=== PATIENT | male | born 1955 | race Hispanic/Latino ===

== ENCOUNTER 2024-07-13 14:00 | Inpatient (IN) | payer OTHER ==
[~2024-07-13] VITALS: Ht 170.2 cm; Wt 104.3 kg
[2024-07-14 13:42] VITALS: BP 138/74; PULSE 67; RESP 19; TEMP 97.3
[2024-07-14 13:53] LABS: BASOPHILS # (AUTO) 0.01 K/uL (0.00-0.20); BASOPHILS % (AUTO) 0.1 % (0.0-5.0); HEMATOCRIT 33.9 % (42-54); IMMATURE GRANULOCYTE ABSOLUTE 0.06 K/uL (0-1); LYMPHOCYTES # (AUTO) 1.1 K/uL (1.0-4.8); LYMPHOCYTES % (AUTO) 13.1 % (21.0-51.0); MEAN CORPUSCULAR HEMOGLOBIN 27.3 pg (27.0-33.0); MEAN CORPUSCULAR HGB CONC 31.6 g/dL (32.0-36.0); MEAN CORPUSCULAR VOLUME 86.5 fL (79-99); MONOCYTES # (AUTO) 0.4 K/uL (0.1-1.0); MONOCYTES % (AUTO) 4.1 % (3.0-13.0); PLATELET COUNT (AUTO) 464 K/uL (130-400); RED BLOOD CELL COUNT(AUTO) 3.92 MIL/uL (4.50-6.20); RED CELL DISTRIBUTION WIDTH 15.3 % (11.0-15.5); WHITE BLOOD COUNT (AUTO) 8.6 K/uL (4.8-10.8)
[2024-07-14 13:58] LABS: INR 1.24 (0.85-1.15); PROTHROMBIN TIME 13.2 SEC (9.6-11.6)
[2024-07-14 14:00] LABS: PARTIAL THROMBOPLASTIN TIME 27.3 SEC (26.3-35.5)
[2024-07-14 14:03] LABS: ALBUMIN 2.4 g/dL (3.5-5.0); BILIRUBIN,TOTAL 0.3 mg/dL (0.2-1.0); CREATININE 1.3 mg/dL (0.5-1.3); POTASSIUM 4.7 mmol/L (3.5-5.1)
[2024-07-14] MEDS ORDERED: MONT-39 PO (14:21)
[2024-07-14] MEDS ORDERED: MORPHINE PO (14:21)
[2024-07-18] VITALS (22 sets, daily range): BP systolic 109–159; BP diastolic 68–92; PULSE 72–97; RESP 16–22; TEMP 97.4–99.2; O2SAT 95–96
[2024-07-18] MEDS: 0.9%NACL 1000ML 1,000 ML IV ONE (06:54)
[2024-07-18] MEDS: MEROPENEM 1 GM VIAL ONE (06:54)
[2024-07-18] MEDS: FAMOTIDINE 20MG VIAL IV ONE (07:04)
[2024-07-18] MEDS: acetaMINOPHEN 100 ML ONE (07:04)
[2024-07-18] MEDS ORDERED: ALBUTEROL INHALER 90MCG/INH IH ONE (07:07)
[2024-07-18] MEDS ORDERED: ketaMINE HCL 100 MG/ML 5ML VIAL IJ ONE (07:10)
[2024-07-18] MEDS ORDERED: proPOFol 10 MG/ML 20ML VIAL IV ONE (07:16)
[2024-07-18] MEDS ORDERED: rocuRONium bROMide 10MG/1ML 5ML VL ONE (07:16)
[2024-07-18] MEDS ORDERED: FENTanyl CITRate PF 50 MCG/1 ML 2ML VIAL ONE (07:16)
[2024-07-18] MEDS ORDERED: LIDOCAINE PF 100MG/5ML (2%) SYRINGE 5ML ONE (07:16)
[2024-07-18] MEDS ORDERED: LIDOCAINE 1%-EPI 1:100,000 20 ML VIAL ONE (07:17)
[2024-07-18] MEDS ORDERED: BUPIvacaine/PF 0.5% 30ML VIAL ONE (07:17)
--- NOTE | 2024-07-18 07:25 | EKG ---
[facility] Test Date: 2024-07-18 Test Time: 06:56:57 Pat Name: MARK CLARKE Department: [facility] Room: 330 Gender: M Internet Developer: [id number] Requested By: JACKSON AHUMADA Order Number: [id number] Reading MD: Edwin Sanchez Measurements Intervals [place] Rate: 99 P: 42 [place]: 134 QRS: 44 QRSD: 106 T: 27 QT: 355 QTc: 457 Interpretive Statements Sinus rhythm No previous ECG available for comparison Electronically Signed On 07-18-2024 18:11:05 LIBRARY SCIENCE INSTRUCTOR by Edwin Sanchez Please click the below link to view image of tracing.
[2024-07-18] MEDS: LIDOCAINE 1%-EPI 1:100,000 20 ML VIAL IJ ONE (07:33)
[2024-07-18] MEDS ORDERED: ondanSETRON 4MG INJ ONE (07:43)
[2024-07-18] MEDS ORDERED: dexaMETHasone SOD PHOSPHATE 10MG/ML 1ML VIAL ONE (07:43)
[2024-07-18] MEDS ORDERED: NEOSTIGMINE METHYLSULFATE 1MG/ML IV ONE (08:45)
[2024-07-18] MEDS ORDERED: GLYCOPYRROLATE 0.2 MG/ML 5 ML VIAL ONE (08:45)
--- NOTE | 2024-07-18 09:18 | OP ---
Operative Note: DATE OF PROCEDURE: 07/18/24 SURGEON: JACKSON AHUMADA MD MEDICAL IMAGING TECHNICIAN: [None] ANESTHESIA: [General plus local] PREOPERATIVE DIAGNOSIS: [Locally advanced rectal adenocarcinoma. Malignant perianal fistulas.] POSTOPERATIVE DIAGNOSIS: [Locally advanced rectal adenocarcinoma with malignant perianal fistulas. Significant retroperitoneal fibrosis] SYNOPSIS: [This is a 69-year-old male with a locally advanced rectal adenocarcinoma with multiple malignant perianal fistula as which renders him incontinent of feces. He is currently undergoing chemotherapy and as a quality of life measure he was offered to have stool diversion. Risks were abrasions and alternatives were explained in detail to the patient who granted consent.] PROCEDURE: [Robotic respiratory care assistant loop colostomy creation. Left ureteral lysis] ESTIMATED BLOOD LOSS: [Minimal] INDICATIONS: [Locally advanced rectal cancer with fistulizing disease.] DESCRIPTION OF PROCEDURE: [The patient was identified in the holding area transferred to the OR placed supine on the operative table. Venodyne boots were placed for DVT prophylaxis. IV antibiotics were given within the hour of skin incision. After general anesthesia was obtained, time-out conducted, he was p repped and draped in the usual sterile fashion. We gained access to the abdomen via Veress needle in the left upper quadrant. Afterwards under direct vision Optiview port was placed in the right upper quadrant. 8 mm ports were placed in the diagonal fashion from the left upper quadrant to the right lower quadrant. The patient was placed in Trendelenburg position with the right side down. Sigmoid colon was identified. We began mobilization from a lateral to medial fashion from the pelvic brim all the way to the splenic flexure. The sigmoid colon was widely mobilized medially. The medial dissection was then performed releasing the colon from the retroperitoneum. There was significant fibrosis at the level of the retroperitoneum encasing the ureter making it to be plastered against the mesentery. So the left ureter adhesions were lysed and mobilized so we can safely bring the colon up for a colostomy creation. Great care was taken not to injure the ureter and other retroperitoneal structures. Having completed wide mobilization we realized the colon reach the abdominal wall with no complications. An incision was then made over the previously marked stoma site and the colon was exteriorized. Pneumoperitoneum was deflated trocars removed under direct vision and port sites incisions closed with 4-0 Monocryl after injecting local anesthesia. The stoma was mature in the standard fashion as a loop colostomy with 3-0 Vicryl sutures. Stoma appliance was placed, counts were done and correct, there were no complications, I was present and scrubbed for the entire case. JACKSON WALTERS MD Jul 18, 2024 09:18
[2024-07-18] MEDS ORDERED: morPHINE 4 MG SYG IV PRN (09:30)
[2024-07-18] MEDS ORDERED: ondanSETRON 4MG INJ IVP PRN (09:30)
[2024-07-18] MEDS ORDERED: HYDROcodone/APAP 5/325 1 TAB TABLET PO PRN (09:30)
--- NOTE | 2024-07-18 09:56 | NUR ---
PATIENT ARRIVED TO UNIT AWAKE AND ALERT. PATIENT CURRENTLY DENIES PAIN AT THIS TIME. NO S/S OF DISTRESS PRESENT. SCD'S AND POST OP VITALS APPLIED AND STARTED. RT NOTIFIED OF IS ORDER. PATIENT ABLE TO TEACH BACK PROPER USE OF IS. BED IN LOWEST POSITION AND CALL LIGHT IN REACH
[2024-07-18] MEDS: D5W-1/2 NS/20MEQ KCL 1,000 ML IV SCH (12:10)
[2024-07-18] MEDS: HEParin 5,000 UNIT VIAL SQ SCH (15:32)
--- NOTE | 2024-07-18 20:10 | NUR ---
FINANCIAL MARKET DEALER FINANCIAL MARKET DEALER JUAN LUIS CALLED AND INFORMS TRAPPER ANIMAL THAT PT HAS NOT BEEN SEEN BY HOSPITALIST YET AND TO CALL PRODUCTION SKI REPAIRER HOSPITALIST FOR TONIGHT FOR CONSULT.
--- NOTE | 2024-07-18 21:15 | NUR ---
MEDS SHIFT ASSESSMENT DONE, PLEASE REFER TO CHART. PT DENIES ANY POST OP PAINS NOR DISCOMFORT. PT VERBALIZES THAT HE HAD ALREADY BURPED BUT TO PASSAGE OF GAS YET. DUE MEDS ADMINISTERED, TOLERATED WELL. KEPT RESTED AND COMFORTABLE IN BED. CALL LIGHT WITHIN REACH. FAMILY AT BEDSIDE.
--- NOTE | 2024-07-18 21:20 | NUR ---
INFORMATICA MDM DEVELOPER INFORMATICA MDM DEVELOPER JUAN STEVENS IN THE FLOOR ROUNDING ON A PT. INFORMATICA MDM DEVELOPER MADE AWARE OF PENDING CONSULT ON PT. INFORMATICA MDM DEVELOPER STATED THAT AM INFORMATICA MDM DEVELOPER SHOULD HAVE DONE THE CONSULT AND WILL HAVE TO DO IT.
[2024-07-19] VITALS: BP 123/68; PULSE 73; RESP 20; TEMP 97.7
[2024-07-19 04:00] VITALS: BP 131/77; PULSE 67; RESP 20; TEMP 98.5
[2024-07-19 04:36] LABS: BASOPHILS # (AUTO) 0.02 K/uL (0.00-0.20); BASOPHILS % (AUTO) 0.2 % (0.0-5.0); HEMATOCRIT 30.7 % (42-54); IMMATURE GRANULOCYTE ABSOLUTE 0.14 K/uL (0-1); LYMPHOCYTES % (AUTO) 9.7 % (21.0-51.0); MEAN CORPUSCULAR HEMOGLOBIN 27.3 pg (27.0-33.0); MEAN CORPUSCULAR HGB CONC 32.2 g/dL (32.0-36.0); MEAN CORPUSCULAR VOLUME 84.6 fL (79-99); MONOCYTES # (AUTO) 0.4 K/uL (0.1-1.0); MONOCYTES % (AUTO) 3.8 % (3.0-13.0); NEUTROPHILS # (AUTO) 9.1 K/uL (1.8-7.7); PLATELET COUNT (AUTO) 341 K/uL (130-400); RED BLOOD CELL COUNT(AUTO) 3.63 MIL/uL (4.50-6.20); RED CELL DISTRIBUTION WIDTH 14.6 % (11.0-15.5); WHITE BLOOD COUNT (AUTO) 10.7 K/uL (4.8-10.8)
[2024-07-19 04:49] LABS: CREATININE 0.9 mg/dL (0.5-1.3); POTASSIUM 4.1 mmol/L (3.5-5.1)
--- NOTE | 2024-07-19 05:31 | NUR ---
ROUNDS PT RESTING IN BED. NO DISTRESS NOTED. NO CONCERNS VERBALIZED. KEPT COMFORTABLE. FOR MORE CARE.
[2024-07-19 08:00] VITALS: BP 120/73; PULSE 69; RESP 19; TEMP 97.5
--- NOTE | 2024-07-19 08:15 | PN ---
COLORECTAL PROGRESS NOTE Date of Visit: Jul 19, 2024 Time of Visit: 08:12 Events / Notes: [69 yo male patient with locally advanced rectal adenocarcinoma and malignant perianal fistulas who underwent a robotic assisted loop colostomy creation and left ureteral lysis. Patient is doing very well today. He is tolerating his diet. No n/v. BBS are clear. abdomen is soft. Active bs present and is passing formed stool via colostomy. Patient reports feeling well and has minimal pain. Plan for disposition this afternoon if there is no n/v after soft diet. HOme care instructions given. Patient and spouse verbalized understanding and agreement. Review of Systems: CONSTITUTIONAL: No malaise or change in sensation of wellbeing. ENMT: No rhinorrhea, otorrhea, sinus pain, ear ache. CARDIOVASCULAR: No angina, palpitations, orthopnea or paroxysmal dyspnea. RESPIRATORY: No SOB. GASTROINTESTINAL: No abdominal pain, nausea, vomiting, diarrhea, hematemesis, melena or change in the patient's habitual bowel movements consistency/number. GENITOURINARY: No dysuria, hematuria or change in bladder continence. MUSCULOSKELETAL: No new muscle pain or decrease in muscular strength. No new joint swelling, redness or tenderness. SKIN: No new rash. Physical Exam: GEN: Awake, alert, oriented in person, time and place, and in no acute distress. HEENT: No rhinorrhea. Oral pharyngeal mucosa is pink, moist and within normal limits. CHEST: Inspection, palpation of the chest were unremarkable. Lung auscultation revealed normal breath sounds bilaterally. CARDIAC: PMI is within normal limits. Heart sounds are regular. ABD: Soft, non-tender and not distended. No peritoneal signs on palpation. No organomegaly. Normal bowel sounds.+formed BM in colostomy bag. EXT: No cyanosis or clubbing. No edema. SKIN: Intact. No rashes. JOINTS: No evidence of synovitis or acute arthritis. NEURO: Alert and oriented to name, place and person. No focal motor deficits. Normal speech. Gait was not assessed. Strength is normal. Vital Signs (last 8hr) Date Time Temp Pulse Resp B/P (MAP) Pulse Ox O2 Delivery O2 Flow Rate FiO2 07/19/24 04:00 98.4 67 20 131/77 98 Nasal Cannula 2.0 Laboratory: [ ] Laboratory: Test 07/19/24 05:15 07/19/24 04:20 Range/Units Whole Blood Glucose 145 H 70-110 MG/DL White Blood Count 10.7 4.8-10.8 K/uL Red Blood Count 3.63 L 4.50-6.20 MIL/uL Hemoglobin 9.9 L 14.0-18.0 g/dL Hematocrit 30.7 L 42-54 % Mean Corpuscular Volume 84.6 79-99 fL Mean Corpuscular Hemoglobin 27.3 27.0-33.0 pg Mean Corpuscular Hemoglobin Concent 32.2 32.0-36.0 g/dL Red Cell Distribution Width 14.6 11.0-15.5 % Platelet Count 341 130-400 K/uL Mean Platelet Volume 9.2 7.5-10.5 fL Immature Granulocyte % (Auto) 1.3 H 0-1 % Neutrophils (%) (Auto) 85.0 H 40.0-77.0 % Lymphocytes (%) (Auto) 9.7 L 21.0-51.0 % Monocytes (%) (Auto) 3.8 3.0-13.0 % Eosinophils (%) (Auto) 0.0 0.0-8.0 % Basophils (%) (Auto) 0.2 0.0-5.0 % Neutrophils # (Auto) 9.1 H 1.8-7.7 K/uL Lymphocytes # (Auto) 1.0 1.0-4.8 K/uL Monocytes # (Auto) 0.4 0.1-1.0 K/uL Eosinophils # (Auto) 0.00 0.00-0.70 K/uL Basophils # (Auto) 0.02 0.00-0.20 K/uL Absolute Immature Granulocyte (auto 0.14 0-1 K/uL Nucleated Red Blood Cells 0.0 0.0-0.19 % White Cell Morphology Comment See comments Sodium Level 135 L 136-145 mmol/L Potassium Level 4.1 3.5-5.1 mmol/L Chloride Level 101 101-111 mmol/L Carbon Dioxide Level 28 21-32 mmol/L Blood Urea Nitrogen 15 7-18 mg/dL Creatinine 0.9 0.5-1.3 mg/dL Glomerular Filtration Rate Calc 92 >90 mL/min Random Glucose 172 H 70-105 mg/dL Total Calcium 8.7 8.5-10.1 mg/dL Current Medications Medications (Trade) Dose Ordered Sig/Zander Route PRN Reason Start Time Stop Time Status Last Admin Dose Admin Acetaminophen/ Hydrocodone Bitart (NORco 5/325MG) 1 tab Q4H PRN PO MODERATE PAIN (4-6) 07/18/24 09:30 07/23/24 09:29 Heparin Sodium (Porcine) (HEParin 5,000 UNIT VIAL) 5,000 unit TID SQ 07/18/24 14:00 08/17/24 13:59 07/18/24 21:11 5,000 UNIT Morphine Sulfate (morPHINE 4MG SYG) 4 mg Q3H PRN IV SEVERE PAIN (7-10) 07/18/24 09:30 07/25/24 09:29 Ondansetron HCl (zoFRAN 4MG INJ) 4 mg Q4H PRN IVP NAUSEA 07/18/24 09:30 08/17/24 09:29 Potassium Chloride/Dextrose/ Sod Cl 1,000 ml @ 75 mls/hr [id number] IV 07/18/24 09:30 08/17/24 09:29 07/19/24 01:39 75 MLS/HR Diagnostics / Radiology: [COPY/PASTE HERE IF NO REPORTS PLEASE DELETE SECTION] Assessment: [Locally advanced rectal adenocarcinoma. Malignant perianal fistulas. ] Plan: [Advance diet Pain meds as needed Encourage ambulation and I/s exercises Daily dressing change to perianal area Plan for disposition in the next 24 hours Please call with questions, concerns, and change in clinica status. Appreciate hospitalist's assistance in our patient care. ] VENECIA GERMAN NP Jul 19, 2024 08:15
--- NOTE | 2024-07-19 09:02 | DS ---
Problems: (1) Renal cancer Discharge Summary Hospital Course No acute events overnight. Patient's VSS. He is hemodynamicaly stable. He has tolerated fluids without any n/v. BBS are clear; abdomen is soft and not distended. Colostomy with formed stool output. Incisions D&I potato chip maker. He is voiding well. Plan to advance diet to regular and patient may be discharged home if tolerating diet well this afternoon. Home care instructions given and appt with Fredi Beck NP scheduled for 07/20/24 at 2:00pm. Patient and spouse verbalized understanding and agreement. VENECIA GERMAN NP Jul 19, 2024 09:02
[2024-07-19 10:20] VITALS: O2SAT 97
--- NOTE | 2024-07-19 10:40 | CONS ---
[facility] CONSULT[facility] Date of Service: Jul 19, 2024 Reason for Consultation: [ Medical management] Requesting Physician: [ Dr. Torres ] HISTORY OF PRESENT ILLNESS: [ Patient came to hospital for elective surgery of robotic front office medical assistant loop colostomy creation and left ureteral lysis. There were no acute events overnight and vital signs are stable. Colostomy with a formed stool output. Patient is voiding well denies any pain, frequency. Patient was seen by primary today and that is cleared to be discharged home once tolerating the diet in the afternoon. Home health instructions were given by the primary as well. Follow-up PCP in 2 to 3 days. Follow up with Dr. Keanu Beck 07/20/2024 at 2:00 p.m.. Patient and spouse at the bedside verbalized understanding and agrees with the further plan.] REVIEW OF SYSTEMS CONSTITUTIONAL: Denies fevers, chills, or night sweats. No unintentional weight loss reported. NEUROLOGICAL: Denies headache, amaurosis fugax, motor weakness, sensory deficit, vertigo/spinning sensation, gait abnormalities, or tremors. ENT: No hearing loss, otalgia, otorrhea, rhinitis, rhinorrhea, hoarseness, or so re throat. CARDIOVASCULAR: Denies any exertional angina, dyspnea on exertion, orthopnea, paroxysmal nocturnal dyspnea, palpitations, life-threatening arrhythmias, claudication. PULMONARY: Denies any shortness of breath, cough, phlegm/sputum, hemoptysis, pleuritic chest pain. SLEEP: Denies morning headaches, daytime somnolence or napping. Denies difficulty falling asleep, staying asleep, waking from sleep. Denies knowledge of snoring. GASTROINTESTINAL: Denies any type of dysphagia to either liquids or solids. Denies nausea, vomiting, pyrosis, early satiety, abdominal pain, diarrhea, constipation, or changes in stool consistency or caliber. Denies coffee-ground emesis, hematemesis, hematochezia, or melanotic stools. GENITOURINARY: Denies frequency, urgency, nocturia, hematuria or incontinence (Storage/Irritative symptoms.) Low urinary stream, straining to void, urinary intermittency or hesitancy, splitting of the voiding stream, terminal dribbling. ENDOCRINOLOGIC: Denies polyuria, polydipsia, polyphagia or heat/cold intolerances. HEMATOLOGIC: Denies thrombophilia/previous clots, or coagulopathy/bleeding disorders. ONCOLOGIC: Denies personal history of malignancy. DERMATOLOGIC: Denies rashes or pruritus. PSYCHIATRIC: Denies any suicidal or homicidal ideation. Denies hallucinations. PAST SOCIAL HISTORY: [ Denies smoking, denies alcohol illicit, denies drug illicit] FAMILY HISTORY: [ Lives at home with the spouse] Coded Allergies: No Known Drug Allergies (Unverified Allergy, Unknown, 07/14/24) PHYSICAL EXAM GENERAL APPEARANCE: The patient is awake, alert, and oriented, in no acute c ardiopulmonary distress. NEUROLOGICAL: Cranial nerves II-XII grossly intact. Motor is 5/5 in bilateral upper and lower extremities proximal to distal. No sensory deficits. HEENT: Face is symmetric. Pupils are equal and reactive. Extraocular movements are intact. NECK: Supple. No JVD. No thyromegaly. No submental, submandibular, pre- /postauricular, occipital or supraclavicular lymphadenopathy. CHEST: Normal chest expansion. No Telemetry. LUNGS: Absence of any rales, rhonchi or any wheezing. CARDIOVASCULAR: Regular. S1 and S2 normal. No appreciable rubs, murmurs or gallops. ABDOMEN: Soft, nontender, and nondistended. There is no rebound, voluntary guarding, or rigidity. : Deferred. No Garces. EXTREMITIES: Non-edematous and not cyanotic. No clubbing. Good capillary refill. SKIN: No skin breakdown. Vital Sign (Last 24 Hours) 07/18/24 07/19/24 07/19/24 21:15 04:00 08:00 Temp 97.5 Pulse 69 Resp 19 B/P (MAP) 120/73 Pulse Ox 97 O2 Delivery Room Air O2 Flow Rate 2.0 FiO2 21 Intake & Output (last 24hrs) 07/18/24 07/18/24 07/19/24 15:00 23:00 07:00 Intake Total 320.0 ml 220 ml 739.0 ml Output Total 250 ml 200 ml Balance 320.0 ml -30 ml 539.0 ml LABS: Laboratory: Test 07/19/24 05:15 07/19/24 04:20 Range/Units Whole Blood Glucose 145 H 70-110 MG/DL White Blood Count 10.7 4.8-10.8 K/uL Red Blood Count 3.63 L 4.50-6.20 MIL/uL Hemoglobin 9.9 L 14.0-18.0 g/dL Hematocrit 30.7 L 42-54 % Mean Corpuscular Volume 84.6 79-99 fL Mean Corpuscular Hemoglobin 27.3 27.0-33.0 pg Mean Corpuscular Hemoglobin Concent 32.2 32.0-36.0 g/dL Red Cell Distribution Width 14.6 11.0-15.5 % Platelet Count 341 130-400 K/uL Mean Platelet Volume 9.2 7.5-10.5 fL Immature Granulocyte % (Auto) 1.3 H 0-1 % Neutrophils (%) (Auto) 85.0 H 40.0-77.0 % Lymphocytes (%) (Auto) 9.7 L 21.0-51.0 % Monocytes (%) (Auto) 3.8 3.0-13.0 % Eosinophils (%) (Auto) 0.0 0.0-8.0 % Basophils (%) (Auto) 0.2 0.0-5.0 % Neutrophils # (Auto) 9.1 H 1.8-7.7 K/uL Lymphocytes # (Auto) 1.0 1.0-4.8 K/uL Monocytes # (Auto) 0.4 0.1-1.0 K/uL Eosinophils # (Auto) 0.00 0.00-0.70 K/uL Basophils # (Auto) 0.02 0.00-0.20 K/uL Absolute Immature Granulocyte (auto 0.14 0-1 K/uL Nucleated Red Blood Cells 0.0 0.0-0.19 % White Cell Morphology Comment See comments Sodium Level 135 L 136-145 mmol/L Potassium Level 4.1 3.5-5.1 mmol/L Chloride Level 101 101-111 mmol/L Carbon Dioxide Level 28 21-32 mmol/L Blood Urea Nitrogen 15 7-18 mg/dL Creatinine 0.9 0.5-1.3 mg/dL Glomerular Filtration Rate Calc 92 >90 mL/min Random Glucose 172 H 70-105 mg/dL Total Calcium 8.7 8.5-10.1 mg/dL DIAGNOSTICS / RADIOLOGY: [ ] ASSESSMENT: [Rectal cancer adenocarcinoma POA s/p robotic front office medical assistant loop colostomy creation and left ureteral lysis ] Multifactorial anemia POA Electrolyte imbalance hyponatremia 135 ATTESTATION BY PHYSICIAN I have seen and examined the patient. I reviewed the documentation, medical decision making, and treatment plan as noted by the mid-level provider above. I agree with the findings and plan of care. MD JUAN LUIS Roman [facility] Jul 19, 2024 10:39
[2024-07-19 12:00] VITALS: BP 134/79; PULSE 73; RESP 18; TEMP 98.1
--- NOTE | 2024-07-19 15:20 | NUR ---
DC NOTE DC INSTRUCTIONS AND FOLLOW UP APPOINTMENT ALREADY ESTABLISH WITH SURGEON. FAMILY TEACHING IN CHANGE OF COLOSTOMY. RETURN DEMONSTRATION, VERBALIZED UNDERSTANDING. PIV REMOVED, CATHETER INTACT, DENIES ANY PAIN OR DISCOMFORT. PT IS WHEELED DOWNSTAIRS WITH PLANER TAILER WITH PERSONAL WHEELCHAIR INTO VIA PRIVATE CAR. NO FUETHER COMMENTS OR CONCERNS AT THIS TIME.
== END 2024-07-19 15:20 | disposition home or self-care (01) | DRG 329 ==
LOC: DAHIP 07-18 05:55 → 3AH 07-18 09:56
PROVIDERS: ADMIT Surgery; ATTEND Surgery
PROC: 0D1N4Z4 Bypass Sigmoid Colon to Cutaneous, Percutaneous Endoscopic Approach (ICD-10-PCS; principal; 2024-07-18 07:26)
DX: C20 Malignant neoplasm of rectum (principal); K68.2 Retroperitoneal fibrosis; E87.1 Hypo-osmolality and hyponatremia; K60.30 Anal fistula, unspecified; D64.9 Anemia, unspecified; Z79.899 Other long term (current) drug therapy
CPT/HCPCS: 36415; 80048; 80053; 82948; 85025; 85610; 85730; 86850; 86900; 86901; 93005; A5073; G0378; J1100; J1644; J2003; J2185; J2405; J2704; J2710; J3010; J3480; J3490; J7030; J7120; A4215; A4216; A4221; A4222; A4223; A4600; A4649; A4663; A4930; A6260; C1769; J0665